=== PATIENT | female | born 1975 | race Caucasian/White ===

== ENCOUNTER 2021-11-17 11:22 | Day surgery (SDC) | payer MEDICARE, BC ==
[~2021-11-17 11:22] MED LIST: Lactated Ringers 1,000 ML IV SCH; Sodium Chloride 0.9% 10 ML Syringe FLUSH PRN; Sodium Chloride 0.9% 2.5 ML Syringe FLUSH PRN; Sodium Chloride 0.9% 20 ML SDV IV PRN
[2021-11-17] MEDS ORDERED: Propofol 200 MG/20 ML SDV ONE (13:07)
[2021-11-17] MEDS ORDERED: Midazolam 1 MG/ML 2 ML SDV ONE (13:07)
[2021-11-17] MEDS ORDERED: Ketamine HCL/NACL, ISO-OSM 50 MG/5 ML Syringe ONE (13:07)
[2021-11-17] MEDS ORDERED: fentaNYL 100 MCG/2 ML SDV ONE (13:34)
== END 2021-11-17 15:16 | disposition home or self-care (01) ==
LOC: MW.SDS 11:22
PROVIDERS: ATTEND Surgery
DX: R19.4 Change in bowel habit (principal); K95.09 Other complications of gastric band procedure; M06.9 Rheumatoid arthritis, unspecified; I78.1 Nevus, non-neoplastic; I10 Essential (primary) hypertension; E66.9 Obesity, unspecified; Z88.8 Allergy status to other drugs, medicaments and biological substances; Z88.0 Allergy status to penicillin; Z90.49 Acquired absence of other specified parts of digestive tract; Z98.890 Other specified postprocedural states; Z68.43 Body mass index [BMI] 50.0-59.9, adult; Z79.899 Other long term (current) drug therapy; Z79.52 Long term (current) use of systemic steroids
CPT/HCPCS: 43239; 45380; 81025; J2250; J2704; J3010; J7120; 00813